=== PATIENT | male | born 1955 | race Caucasian/White ===

== ENCOUNTER 2016-08-02 08:19 | Emergency (ER) | payer OTHER ==
[~2016-08-02] VITALS: Ht 167.6 cm; Wt 122.5 kg
[~2016-08-02 08:19] MED LIST: CLON1TAB69 PO; CYCL10TA9 PO; LEVO500T69 PO; LISI10TA2 PO; METH4TAB PO; MORP30CP12 PO; MTH10T PO; OXYC1TAB16 PO; SERT100T8 PO; TRM50T PO; WARF5TAB PO
[2016-08-02] MEDS ORDERED: TRAM50TA2 (08:37)
[2016-08-02] MEDS ORDERED: HYDR-3812 PO (08:59)
[2016-08-02] MEDS ORDERED: PRD10T PO (08:59)
--- NOTE | 2016-08-02 08:59 | ED Back Pain ---
General Chief Complaint: Back Problems Stated Complaint: BACK PAIN Nursing Triage Note: AMBULATED TO ROOM 06 WITH COMPLAINTS OF CHRONIC BACK PAIN THAT BEGAN HURITNG WORSE AFTER BENDING OVER TO TIE HIS SHOES LAST NOC. FROM [place] HERE SITTING WITH HIS FATHER IN LAW. STATES HE DID NOT TAKE HIS BP MED THIS AM. Nursing Sepsis Screen: No Definite Risk Source of Information: Patient Exam Limitations: No Limitations History of Present Illness Time Seen by Provider: 08:34 Initial Comments This 61-year-old gentleman presents to the emergency room with chronic lower back pain. The pain is related to weight lifting accident over 30 years ago. He reports having an MRI performed at the [facility] demonstrating bulging disks and stenosis. He has petitioned to obtain a primary care provider locally through [employer] and is awaiting a response to his request. He states the DE has instructed him to present to an emergency room when he needs treatment for his pain. He takes [id number] ibuprofen which is insufficient for his pain. He sometimes has radicular symptoms in the thighs but denies weakness, or bowel or bladder control problems. Allergies and Home Medications Allergies Coded Allergies: trazodone (Verified Allergy, Unknown, ERECTION FOR 4 HOURS, 08/02/16) Home Medications Hydrocodone/Acetaminophen 1 Each Tablet, 1 EACH PO Q4H PRN for PAIN, #20 Prescribed by: ELIZABETH MADRIGAL on 08/02/16 0859 Lisinopril 10 Mg Tablet, 10 MG PO DAILY, (Reported) Prednisone 10 Mg Tab, 10 MG PO UD, #18 3 daily for 3 days, then 2 daily for 3 days, then 1 daily for 3 days Prescribed by: ELIZABETH MADRIGAL on 08/02/16 0859 Tramadol HCl 50 Mg Tablet, #14 (Reported) Constitutional: no symptoms reported EENTM: no symptoms reported Respiratory: no symptoms reported Cardiovascular: no symptoms reported Gastrointestinal: no symptoms reported Genitourinary: no symptoms reported Musculoskeletal: see HPI Skin: no symptoms reported Psychiatric/Neurological: See HPI Past Pulnadl-Skumvm-Foocjx Hx Patient Social History Alcohol Use: Denies Use Recreational Drug Use: No 2nd Hand Smoke Exposure: No Recent Foreign Travel: No Contact w/Someone Who Travel: No Recent Infectious Disease Expo: No Recent Hopitalizations: No Immunizations Up To Date Tetanus Booster (TDap): Unknown Surgeries HX Surgeries: Yes Surgeries: Orthopedic (Feet, ankles, elbow, shoulder, knees) Respiratory Hx Respiratory Disorders: Yes Respiratory Disorders: Pulmonary Embolism (On prophylactic anticoagulation with Eliquis) Cardiovascular Hx Cardiac Disorders: Yes Cardiac Disorders: Hypertension Neurological Hx Neurological Disorders: No Genitourinary Hx Genitourinary Disorders: No Gastrointestinal Hx Gastrointestinal Disorders: Yes (CURED HEPATITIS) Gastrointestinal Disorders: Hepatitis Musculoskeletal Hx Musculoskeletal Disorders: Yes (NUMEROUS ANKLE SURG, rt knee surgery) Musculoskeletal Disorders: Arthritis Endocrine Hx Endocrine Disorders: No HEENT HX ENT Disorders: No Cancer Hx Cancer: No Psychosocial Hx Psychiatric Problems: No Integumentary HX Skin/Integumentary Disorder: No Blood Transfusions Hx Blood Disorders: No Family Medical History Family Medial History: AIDS 19 MOTHER (hep c) Cardiovascular disease 19 FATHER (heart problems) Kidney disease G8 BROTHER ( of kidney disease) Osteoporosis G8 SISTER (back surgery) Prostate cancer G8 BROTHER Psychosocial problem 19 FATHER (commtted sucide) G8 BROTHER (murdered in hotel) Physical Exam Vital Signs Vital Sign - Last 12Hours 08/02/16 08:30 Temp 98.6 Pulse 80 Resp 16 B/P (MAP) 190/115 Pulse Ox 98 Capillary Refill : Less Than 3 Seconds General Appearance: WD/WN, Mild Distress, Obese HEENT: PERRL/EOMI, Normal ENT Inspection Neck: Normal Inspection Cardiovascular: Regular Rate, Rhythm, No Edema, No Murmur Respiratory: Lungs Clear, Normal Breath Sounds, No Accessory Muscle Use, No Respiratory Distress Gastrointestinal: Normal Bowel Sounds, Non Tender Back: Vertebral Tenderness (Over the lumbar spine and paraspinous muscles) Extremity: Normal Inspection, No Pedal Edema Neurologic/Psychiatric: Alert, Oriented x3, No Motor/Sensory Deficits, Normal Mood/Affect, deli slicer II-XII Norm as Tested Skin: Normal Color, Warm/Dry Progress/Results/Core Measures Results/Orders My Orders Orders - ELIZABETH GARRETT MD Ketorolac Injection (Toradol Injection) (08/02/16 09:00) Vital Signs/I&O Vital Sign - Last 12Hours 08/02/16 08/02/16 08:30 09:30 Temp 98.6 Pulse 80 81 Resp 16 16 B/P (MAP) 190/115 Pulse Ox 98 98 Blood Pressure Mean: 140 Progress Note : Progress Note Patient was treated with Toradol. Prescriptions were provided for prednisone and hydrocodone. Departure Impression Impression: Primary Impression: Lumbar radiculopathy Additional Impression: Chronic low back pain Qualified Codes: M54.42 - Lumbago with sciatica, left side; M54.41 - Lumbago with sciatica, right side; G89.29 - Other chronic pain Disposition: 01 HOME, SELF-CARE Condition: Improved Departure-Patient Inst. Decision time for Depature: 08:56 Referrals: NO,LOCAL PHYSICIAN (PCP/Family) Primary Care Physician Patient Instructions: MANAGING YOUR CHRONIC PAIN Add. Discharge Instructions: Establish with a local primary care provider and/or paint spray inspector as soon as possible. Return to care if symptoms worsen, especially if you develop worsening weakness in the legs or difficulty controlling bowels or bladder. You may continue using ibuprofen up to 800 mg 3 times daily. Add hydrocodone for pain not controlled by ibuprofen. Use the prednisone as prescribed. All discharge instructions reviewed with patient and/or family. Voiced understanding. Scripts Prednisone (Prednisone) 10 Mg Tab 10 MG PO UD, #18 TAB 3 daily for 3 days, then 2 daily for 3 days, then 1 daily for 3 days Prov: ELIZABETH GARRETT MD 08/02/16 Hydrocodone/Acetaminophen (Hydrocodon -Acetaminophen 5-325) 1 Each Tablet 1 EACH PO Q4H Y for PAIN, #20 TAB Prov: ELIZABETH GARRETT MD 08/02/16 ELIZABETH GARRETT MD Aug 02, 2016 08:59
[2016-08-02] MEDS ORDERED: KETOROLAC 60 MG/2 ML VIAL IM ONE (09:00)
[2016-08-02 09:30] VITALS: BP 198/110
== END 2016-08-02 09:30 | disposition home or self-care (01) ==
LOC: EDUNIT# 08:19 → ER 08:22
DX: M54.16 Radiculopathy, lumbar region (principal); G89.29 Other chronic pain; I10 Essential (primary) hypertension; Z79.899 Other long term (current) drug therapy; Z86.718 Personal history of other venous thrombosis and embolism
CPT/HCPCS: 96372; 99281